=== PATIENT | female | born 1970 | race Caucasian/White ===

== ENCOUNTER 2024-09-11 13:29 | Outpatient (CLI) | payer BC, OTHER | END 2024-09-11 13:30 | disposition home or self-care (01) | LOC: CSHWCC 13:29 | PROVIDERS: ATTEND Nurse Practitioner Family | DX: T22.222A Burn of second degree of left elbow, initial encounter (principal); G82.54 Quadriplegia, C5-C7 incomplete | CPT/HCPCS: 97597; 99213; G0463 ==